=== PATIENT | male | born 1965 | race Caucasian/White ===

== ENCOUNTER 2017-05-08 08:26 | Outpatient (CLI) | payer OTHER ==
[~2017-05-08] VITALS: Ht 182.9 cm; Wt 99.8 kg
== END 2017-05-08 08:50 | disposition home or self-care (01) ==
LOC: OFIC 805 08:26
DX: K21.9 Gastro-esophageal reflux disease without esophagitis (principal); J30.89 Other allergic rhinitis; J34.2 Deviated nasal septum; R49.0 Dysphonia